=== PATIENT | male | born 1995 ===

== ENCOUNTER → 2016-10-11 | Outpatient (REF) | LOC: WSOH 08:13 | DX: Z02.1 Encounter for pre-employment examination (principal) ==

== ENCOUNTER → 2016-10-13 | Outpatient (REF) | LOC: WSOH 15:30 | DX: Z02.89 Encounter for other administrative examinations (principal) ==

== ENCOUNTER → 2016-10-19 | Outpatient (REF) | LOC: WSOH 11:25 | DX: Z11.1 Encounter for screening for respiratory tuberculosis (principal) ==